=== PATIENT | female | born 1985 | race Two or more races ===

== ENCOUNTER 2019-03-23 19:59 | Emergency (ER) | payer OTHER ==
[~2019-03-23] VITALS: Ht 154.9 cm; Wt 97.1 kg
[2019-03-23 20:15] VITALS: BP 160/87
[2019-03-23 20:33] LABS: BILIRUBIN,URINE NEGATIVE (NEG); CLARITY,URINE CLEAR; COLOR,URINE YELLOW; NITRITE,URINE NEGATIVE (NEG); PH,URINE 6.5; PROTEIN,URINE NEGATIVE (NEG-TRACE)
--- NOTE | 2019-03-23 20:34 | PHYS DOC ---
Past Medical History Past Medical History: No Pertinent History (KELI REVELES APRN) Past Surgical History: (KELI REVELES APRN) Alcohol Use: None Drug Use: None (KELI REVELES APRN) Adult General Chief Complaint Chief Complaint: PAIN ON URINATION [facility] HPI Patient is a 34 year old [female] who presents with [I think I have a UTI. Patient reports she has had several UTIs in the past, however, that she was not . States over the last 2 days, she has had some burning with urination, some urinary frequency, has felt urgency, has felt that she stated frequently gets a few drops out. Denies any fever, denies any back pain. States she has not tried taking medications that she did not know what to take for it she says she wanted to come in before it got too bad. States she knows she is not , she has had her tubes tied. Denies nausea, denies vomiting, denies diarrhea. Reports last bowel movement this morning. Denies any loss of appetite. Does report suprapubic pain (KELI REVELES APRN) Review of Systems Review of Systems Constitutional: Denies fever or chills [] Respiratory: Denies cough or shortness of breath [] Cardiovascular: No additional information not addressed in HPI [] GI: Denies abdominal pain other than suprapubic pain, nausea, vomiting, bloody stools or diarrhea [] : Reports dysuria, does report she has noticed a small amount of blood when her symptoms started. Or urinary frequency, urgency, discomfort on urination.[] Musculoskeletal: Denies back pain or joint pain [] Integument: Denies rash or skin lesions [] Neurologic: Denies headache, focal weakness or sensory changes [] Endocrine: Denies polyuria or polydipsia [] All other systems were reviewed and found to be within normal limits, except as documented in this note. (KELI REVELES APRN) Allergies Allergies Allergies Coded Allergies Type Severity Reaction Last Updated Verified No Known Drug Allergies 03/23/19 No (RACHEL CHAMORRO MD) Physical Exam Physical Exam Constitutional: Well developed, well nourished, no acute distress, non-toxic appearance. [] HENT: Normocephalic, atraumatic, bilateral external ears normal, oropharynx moist, no oral exudates, nose normal. [] Cardiovascular:Heart rate regular rhythm, no murmur [] Lungs & Thorax: Bilateral breath sounds clear to auscultation [] Abdomen: Bowel sounds normal, soft, no tenderness, no masses, no pulsatile masses. Suprapubic tenderness on palpation. No discomfort on RLQ Or LLQ palpation palpation[] Skin: Warm, dry, no erythema, no rash. [] Back: No tenderness, no CVA tenderness. [] Extremities: No tenderness, no cyanosis, no clubbing, ROM intact, no edema. [] Neurologic: Alert and oriented X 3, normal motor function, normal sensory function, no focal deficits noted. [] Psychologic: Affect normal, judgement normal, mood normal. [] (KELI REVELES APRN) Current Patient Data Vital Signs Vital Signs Date Time Temp Pulse Resp B/P (MAP) Pulse Ox O2 Delivery O2 Flow Rate FiO2 03/23/19 20:15 98.1 101 16 160/87 (111) 98 Room Air 98.1 (RACHEL CHAMORRO MD) Lab Values Laboratory Tests Test 03/23/19 20:10 Urine Collection Type Unknown Urine Color Yellow Urine Clarity Clear Urine pH 6.5 Urine Specific [place] 1.015 Urine Protein Negative mg/dL (NEG-TRACE) Urine Glucose (UA) Negative mg/dL (NEG) Urine Ketones (Stick) Negative mg/dL (NEG) Urine Blood Negative (NEG) Urine Nitrite Negative (NEG) Urine Bilirubin Negative (NEG) Urine Urobilinogen Dipstick 1.0 mg/dL (0.2 mg/dL) Urine Leukocyte Esterase Small (NEG) Urine RBC Occ /HPF (0-2) Urine WBC 11-20 /HPF (0-4) Urine Squamous Epithelial Cells Mod /LPF Urine Bacteria Few /HPF (0-FEW) Urine Mucus Mod /LPF (RACHEL CHAMORRO MD) Lab Values Laboratory Tests Test 03/23/19 20:10 Urine Collection Type Unknown Urine Color Yellow Urine Clarity Clear Urine pH 6.5 Urine Specific [place] 1.015 Urine Protein Negative mg/dL (NEG-TRACE) Urine Glucose (UA) Negative mg/dL (NEG) Urine Ketones (Stick) Negative mg/dL (NEG) Urine Blood Negative (NEG) Urine Nitrite Negative (NEG) Urine Bilirubin Negative (NEG) Urine Urobilinogen Dipstick 1.0 mg/dL (0.2 mg/dL) Urine Leukocyte Esterase Small (NEG) Urine RBC Occ /HPF (0-2) Urine WBC 11-20 /HPF (0-4) Urine Squamous Epithelial Cells Mod /LPF Urine Bacteria Few /HPF (0-FEW) Urine Mucus Mod /LPF (KELI REVELES APRN) EKG EKG [] (KELI REVELES APRN) Radiology/Procedures Radiology/Procedures [] (KELI REVELES APRN) Course & Med Decision Making Course & Med Decision Making Pertinent Labs and Imaging studies reviewed. (See chart for details) []Reviewed urinalysis with some noted bacteria but also squamous cells showing potential for contamination. With symptomology will treat with antibiotics and have patient follow up. (KELI REVELES APRN) Course & Med Decision Making Staff Physician Addendum: I was working in the ER during the course of this patient's visit. I was available for consultation as needed, but I was not directly involved in the care of this patient. (RACHEL CHAMORRO MD) Dragon Disclaimer Dragon Disclaimer This electronic medical record was generated, in whole or in part, using a voice recognition dictation system. (KELI REVELES APRN) Departure Departure Impression: Primary Impression: Urinary tract infection Additional Impression: Dysuria Disposition: 01 HOME, SELF-CARE Condition: STABLE Referrals: NO PCP (PCP) Patient Instructions: Urinary Tract Infection Additional Instructions: As we discussed, make sure you're drinking plenty of fluids. You may take ibuprofen for discomfort. We will start you on an antibiotic. make sure you take it for the entire duration as prescribed. Scripts Ciprofloxacin Hcl (CIPRO) 500 Mg Tablet 500 MG PO BID for 5 Days, #10 TAB 0 Refills Prov: KELI REVELES APRN 03/23/19 Problem Qualifiers Primary Impression: Urinary tract infection Urinary tract infection type: acute cystitis Hematuria presence: with hematuria Qualified Codes: N30.01 - Acute cystitis with hematuria KELI REVELES APRN Mar 23, 2019 20:34 RACHEL CHAMORRO MD Mar 24, 2019 02:07
[2019-03-23 20:37] LABS: SQUAMOUS EPITHELIAL CELL,UR MOD /LPF
[2019-03-23 20:38] LABS: BACTERIA,URINE FEW /HPF (0-FEW); RBC,URINE OCC /HPF (0-2)
[2019-03-23] MEDS ORDERED: CIPR500T94 PO (20:49)
== END 2019-03-23 21:00 | disposition home or self-care (01) ==
LOC: ER 19:59
DX: N30.01 Acute cystitis with hematuria (principal)
CPT/HCPCS: 81001; 87086; 99284